=== PATIENT | female | born 1995 | race Caucasian/White ===

== ENCOUNTER 2020-01-12 20:23 | Emergency (ER) | payer MEDICAID ==
[~2020-01-12] VITALS: Ht 165.1 cm; Wt 77.3 kg
--- NOTE | 2020-01-12 21:25 | NUR ---
reports being in a mood reached out to boyfriend he offered her a threesome to coalm her down and walked to a gas station and got a vodka and has been drinking vodka off and on. Than called her sister Ana and she reports aruging with her about this situation and was elliot gto take her home and than sister offered to stacey davidson to the hospital since she is drinking and patient reports wantign to take all her lithium and trazadone entire bottles worth.
[2020-01-12 21:32] LABS: URINE HCG NEGATIVE (NEG)
--- NOTE | 2020-01-12 21:39 | NUR ---
reports using excessive caffeine intake 600 mg pill x 6 and then 8 to speed up heart to
[2020-01-12 21:52] LABS: URINE AMPHETAMINE SCREEN NEGATIVE (Neg); URINE BARBITUATE SCREEN NEGATIVE (Neg); URINE BENZODIAZEPINES SCREEN NEGATIVE (Neg); URINE CANNABINOID SCREEN NEGATIVE (Neg); URINE COCAINE SCREEN NEGATIVE (Neg); URINE METHADONE SCREEN NEGATIVE (Neg); URINE OPIATE SCREEN NEGATIVE (Neg); URINE PHENCYCLIDINE SCREEN NEGATIVE (Neg)
[2020-01-12 22:13] LABS: BASOPHILS % (AUTO) 0.5 % (0-1); EOSINOPHILS # (AUTO) 0.1 X10'3 (0-0.9); EOSINOPHILS % (AUTO) 1.3 % (0-6); HEMATOCRIT 39.4 % (35.0-45.0); LYMPHOCYTES # (AUTO) 1.7 X10'3 (1.1-4.8); LYMPHOCYTES % (AUTO) 24.5 % (21-51); MEAN CORPUSCULAR HEMOGLOBIN 27.2 PG (27.0-31.0); MEAN CORPUSCULAR VOLUME 82.2 FL (78-98); MEAN PLATELET VOLUME 8.4 FL (7.4-10.4); MONOCYTES # (AUTO) 0.6 X10'3 (0-0.9); MONOCYTES % (AUTO) 8.2 % (2-12); NEUTROPHILS # (AUTO) 4.5 X10'3 (1.8-7.7); NEUTROPHILS % (AUTO) 65.5 % (42-75); PLATELET COUNT 300 X10'3 (140-440); RED BLOOD COUNT 4.79 X10'6 (4.20-5.60); RED CELL DISTRIBUTION WIDTH 14.3 % (11.5-14.5); WHITE BLOOD COUNT 6.9 X10'3 (4.5-11.0)
[2020-01-12 22:15] LABS: ALANINE AMINOTRANSFERASE 18 U/L (12-78); ALBUMIN 4.1 G/DL (3.4-5.0); ALKALINE PHOSPHATASE 92 IU/L (46-116); ANION GAP 10 (8-16); ASPARTATE AMINO TRANSFERASE 15 U/L (10-37); BILIRUBIN,TOTAL 0.1 MG/DL (0.1-1.0); BLOOD UREA NITROGEN 10 MG/DL (7-18); CALCIUM 9.2 MG/DL (8.5-10.1); CHLORIDE 107 MMOL/L (99-107); CREATININE 0.83 MG/DL (0.40-0.90); ETHANOL < 0.010 GM/DL (0.0-0.010); GLUCOSE 98 MG/DL (70-104); POTASSIUM 3.6 MMOL/L (3.5-5.1); SODIUM 141 MMOL/L (135-145); TOTAL CARBON DIOXIDE 23.9 MMOL/L (24-32); TOTAL PROTEIN 8.1 G/DL (6.4-8.2); eGFR 85 ML/MIN
[2020-01-12 22:30] LABS: ACETAMINOPHEN < 2.0 UG/ML (10-30)
--- NOTE | 2020-01-12 22:30 | NUR ---
SITTING ON EDGE OF BED LOOKING OUT THE ROOM, NO COMPLAINTS
--- NOTE | 2020-01-12 23:30 | NUR ---
LYING DOWN STARING AT CEILING
--- NOTE | 2020-01-13 00:30 | NUR ---
EYES CLOSED AWAKENS AT ANY STIMULUS OR ROOM CHECK
--- NOTE | 2020-01-13 01:00 | NUR ---
AWAKE IN ROOM LYING IN BED
--- NOTE | 2020-01-13 02:00 | NUR ---
EYES CLOSED NO DISTRESS
--- NOTE | 2020-01-13 03:00 | NUR ---
AWAKE TO RESTROOM
--- NOTE | 2020-01-13 04:00 | NUR ---
AWAKE COMPLAINTS OF INSOMNIA AND THAT SHE GETS THIS WAY IT IS A BIG PROBLEM FOR HER ESPECIALLY OF LATE.
--- NOTE | 2020-01-13 05:55 | NUR ---
UNEVENTFUL NIGHT. ASKING FOR COFFEE ADVSIED NOT AT THIS TIME, SHE REPORTS YOUR HOLDING THIS BECAUSE I HAVE A ADDICTION
[2020-01-13 06:10] VITALS: BP 119/77
--- NOTE | 2020-01-13 07:39 | NUR ---
PT AMBULATED TO BR, TOLERATED WELL. VOIDED X1
--- NOTE | 2020-01-13 09:15 | NUR ---
NIK AT BEDSIDE, ASSESSING PT
--- NOTE | 2020-01-13 16:00 | NUR ---
JODI FROM [facility] HERE TO ESCORT PT TO [place] [facility].
--- NOTE | 2020-01-13 16:11 | NUR ---
SECURITY HERE ALSO TO ESCORT PT
[2020-01-13] MEDS ORDERED: lithium PO (16:17)
[2020-01-13] MEDS ORDERED: TRAZ-251 PO (16:17)
== END 2020-01-13 16:13 | disposition home or self-care (01) ==
LOC: ER 20:25
DX: R45.851 Suicidal ideations (principal); F32.9 Major depressive disorder, single episode, unspecified; Z91.5 Personal history of self-harm
CPT/HCPCS: 36415; 80053; 80305; 80320; 80329; 81025; 85025; 99285

== ENCOUNTER 2020-01-13 15:15 | Inpatient (IN) | payer MEDICAID ==
[~2020-01-13] VITALS: Ht 162.6 cm; Wt 76.5 kg
[2020-01-13] MEDS ORDERED: loperamide 2mg capsule PO PRN (15:55)
[2020-01-13] MEDS ORDERED: acetaminophen 325mg tablet PO PRN ×2 (15:55)
[2020-01-13] MEDS ORDERED: magnesium hydroxide 30ml (MOM) UD suspension PO PRN (15:55)
[2020-01-13] MEDS ORDERED: LORazepam 1 MG tablet PO PRN (15:55)
[2020-01-13] MEDS ORDERED: mag hydrox/Alum hydrox/simeth 30ml oral suspension PO PRN (15:55)
[2020-01-13] MEDS ORDERED: traZODone 50mg tablet PO PRN (15:55)
[2020-01-13] MEDS ORDERED: TRAZ-251 PO (16:17)
[2020-01-13] MEDS ORDERED: lithium PO (16:17)
[2020-01-13 16:41] VITALS: BP 140/93
--- NOTE | 2020-01-13 17:31 | NUR ---
Admit note: PT admitted to [place] for [facility] health today at 1614 on a 5150 for DTS. PT made a plan and intent for suicide to overdose on [place] and Zoloft. Pt unable to develop a plan for safety. Pt has history of depression, eating disorder, anxiety, affective mood disorder, borderline personality disorder. Pt very cooperative with admission process.
[2020-01-13] MEDS: lithium carbonate 150mg capsule PO SCH ×2 (17:48→20:19)
[2020-01-13] MEDS: traZODone 50mg tablet PO PRN (20:18)
[2020-01-13 20:23] VITALS: BP 133/73
--- NOTE | 2020-01-14 02:16 | NUR ---
Nursing progress note Legal hold:5150 Client on involuntary status for DTS Report received from nurse with use of SBAR. Why are they here: PT admitted to [place] for Behavioral health today at 1614 on a 5150 for DTS. PT made a plan and intent for suicide to overdose on [place] and Zoloft. Pt unable to develop a plan for safety. Pt has history of depression, eating disorder, anxiety, affective mood disorder, borderline personality disorder. Pt very cooperative with admission process. Diagnosis/presenting symptoms:Depression Assessment What has happened this shift: Pt was in her room at the start of shift. I introduced myself and asked if I could do an assessment and she was cooperative and pleasant. Talked about getting a hair cut and she stayed in her room most the night S/I, H/I: A/VH: Sleep:See sleep assessment ADL's:independent Group attendance:n/a Were meds taken:yes Any med S/Aparna Mental Status Exam Appearance: WNL Eye contact:good Behavior:pleasant Speech:normal Mood:good Affect:congruent Thought process: Linear Thought Content: appearance Cognition: a/ox4 Insight:good Judgment: fair Interventions PRN's used:none Therapeutic interventions: 1:1 assessment, therapeutic communication, active listening, maintained a safe and therapeutic environment, medication administration/education/monitoring, behavior monitoring and intervention; limit setting, redirection, distraction, positive reinforcement, maintained Q 15 minute safety checks. Restraints/seclusion/emergency medication: N/A Justification of Continued Inpatient Treatment: Pt requires crisis interruption and medication adjustment and monitoring in a safe and therapeutic environment.
[2020-01-14 07:30] LABS: HEMOGLOBIN A1C 5.9 % (4.5-6.2)
[2020-01-14 07:41] LABS: CHOL/HDL RATIO 3.8 (0.00-4.99); CHOLESTEROL 150 MG/DL (0-200); HDL CHOLESTEROL 39 MG/DL (35-60); LDL CHOLESTEROL 97 MG/DL (50-100); TRIGLYCERIDES 94 MG/DL (20-135)
[2020-01-14 08:00] VITALS: BP 119/71
[2020-01-14] MEDS: lithium carbonate 150mg capsule PO SCH ×4 (08:06→20:07)
--- NOTE | 2020-01-14 10:00 | NUR ---
Group Therapy: Process Group This Clinicians goals for this process group were as follows: (1) Ask scaling questions about patients current anxiety, depression, and irritability symptoms as a check-in. (2) Share psychoeducation about self-efficacy, and ego strength. (3) Provide psychoeducation on eMinor triangleVictim, Persecutor, Rescuer dynamic. (4) Share psychoeducation on developing positive ego strengthpositive affirmations, positive self-talk, transitioning from a victim of circumstances to a survivor of circumstances. (5) Process patients thoughts and reflections on this topic within the group milieu. Patient identified experiencing the following levels of anxiety, depression, and anger/irritability while present in the group milieu (0-low; 10-High). Anxiety: 04/02 Depression: 06/30 Anger/irritability: 03/02 Patient presented as properly oriented x4 during the process group. Patient was dressed in nondescript, personal clothing that were appropriate within the milieu. Psychomotor activity was unremarkable. Patient's thought content was clear, and concrete. Patient's thought process was clear, coherent, and linear. This Clinician did not observe Patient responding to any internal stimuli during session. The rate, latency, and tone of Patients speech was within normal limits. Patients speech was clear, and understandable. Patient maintained regular eye contact with this Clinician. Patient presented in calm euthymic mood, with congruent affect during the process group. Patient presented as open, cooperative, verbally engaged, and nonobtrusive within the group milieu. Patient was an active participant during the discussion on ONOFFMIX (?) wyatt. She was able to identify differences in the mindsets of those who present as, Victims, as opposed to those who present as, Survivors. Finally, she was able to state several positive characteristics about herself that she could use as positive affirmations. Azael June MA, SUB PRIOR Addendum: 01/14/20 at 1129 by Azael June Amended: Links added.
--- NOTE | 2020-01-14 17:09 | NUR ---
Nursing progress note Oliva: Legal hold:5150 Client on involuntary status for DTS Report received from Gretchen De La Torre RN with use of SBAR. Why are they here: PT admitted to [facility] for Behavioral health today at 1614 on a 5150 for DTS. PT made a plan and intent for suicide to overdose on [place] and Zoloft. Pt unable to develop a plan for safety. Pt has history of depression, eating disorder, anxiety, affective mood disorder, borderline personality disorder. Pt very cooperative with admission process. Diagnosis/presenting symptoms:Depression Assessment What has happened this shift: Pt was in her room at the start of shift. Pt compliant with med pass after breakfast. During 1:1 interview pt only gave RN yes and no anwsers to questions, pt appears more guarded today. In the afternoon pt seemed more social talking with peer in the day room doing art. Pt calm, compliant and cooperative. Pt seen sitting in room reading book contently. S/I, H/I: Denies A/VH: Denies Sleep: ADL's:independent Group attendance: Yes Were meds taken: Yes Any med S/E: No Mental Status Exam Appearance: WNL Eye contact:good Behavior:pleasant Speech:normal Mood:good Affect:congruent Thought process: Linear Thought Content: appearance Cognition: AOX4 Insight:good Judgment: fair Interventions PRN's used:none Therapeutic interventions: 1:1 assessment, therapeutic communication, active listening, maintained a safe and therapeutic environment, medication administration/education/monitoring, behavior monitoring and intervention; limit setting, redirection, distraction, positive reinforcement, maintained Q 15 minute safety checks. Restraints/seclusion/emergency medication: N/A Justification of Continued Inpatient Treatment: Pt requires crisis interruption and medication adjustment and monitoring in a safe and therapeutic environment.
[2020-01-14] MEDS ORDERED: ibuprofen tablet 400 MG TABLET PO ONE (20:30)
--- NOTE | 2020-01-14 20:30 | NUR ---
New order for motrin obtained as pt. c/o pain to chest/breasts from recent breast augmentation procedure.
[2020-01-14 20:34] VITALS: BP 117/71
[2020-01-14 20:36] VITALS: BP 129/81
[2020-01-14] MEDS: prazosin 1mg capsule PO SCH (20:36)
[2020-01-14] MEDS ORDERED: lithium carbonate 150mg capsule PO SCH (21:00)
[2020-01-14] MEDS: traZODone 50mg tablet PO PRN (21:18)
--- NOTE | 2020-01-15 01:11 | NUR ---
Nursing progress note Oliva: Legal hold:5150 Client on involuntary status for DTS Report received from Danny ARAIZA, with use of SBAR. Why are they here: PT admitted to [facility] for Behavioral health today at 1614 on a 5150 for DTS. PT made a plan and intent for suicide to overdose on [place] and Zoloft. Pt unable to develop a plan for safety. Pt has history of depression, eating disorder, anxiety, affective mood disorder, borderline personality disorder. Pt very cooperative with admission process. Diagnosis/presenting symptoms:Depression Assessment What has happened this shift: Pt was in recreation room at the start of shift watching TV. Pt. requesting to take a shower tonight which she did. Pt compliant with med pass after having snack. New order for motrin for c/o pain to chest/breast area obtained and given. Pt calm, compliant, cooperative and pleasant. S/I, H/I: Denies A/VH: Denies Sleep: ADL's:independent Group attendance: Yes Were meds taken: Yes Any med S/E: No Mental Status Exam Appearance: WNL Eye contact:good Behavior:pleasant Speech:normal Mood:good Affect:congruent Thought process: Linear Thought Content: appearance Cognition: AOX4 Insight:good Judgment: fair Interventions PRN's used:none Therapeutic interventions: 1:1 assessment, therapeutic communication, active listening, maintained a safe and therapeutic environment, medication administration/education/monitoring, behavior monitoring and intervention; limit setting, redirection, distraction, positive reinforcement, maintained Q 15 minute safety checks. Restraints/seclusion/emergency medication: N/A Justification of Continued Inpatient Treatment: Pt requires crisis interruption and medication adjustment and monitoring in a safe and therapeutic environment. Addendum: 01/15/20 at 0135 by Linnette Cordova RN Admit date 01/14/20. Addendum: 01/15/20 at 0254 by Linnette Cordova RN Check sleep report fo hours of sleep. Pt. had prn trazadone 200mg for sleep last night.
[2020-01-15 08:00] VITALS: BP 110/61
[2020-01-15] MEDS: ESCITALOPRAM OXALATE 5 MG TABLET PO SCH (08:24)
[2020-01-15] MEDS: lithium carbonate 150mg capsule PO SCH ×3 (08:25→21:29)
[2020-01-15] MEDS: ibuprofen tablet 400 MG TABLET PO SCH ×2 (08:25→21:28)
--- NOTE | 2020-01-15 17:19 | NUR ---
Nursing progress note Oliva: Legal hold:5150 Client on involuntary status for DTS Report received from Candace ARAIZA, with use of SBAR. Why are they here: PT admitted to [place] [facility] for Behavioral health today at 1614 on a 5150 for DTS. PT made a plan and intent for suicide to overdose on [place] and Zoloft. Pt unable to develop a plan for safety. Pt has history of depression, eating disorder, anxiety, affective mood disorder, borderline personality disorder. Pt very cooperative with admission process. Diagnosis/presenting symptoms:Depression Assessment What has happened this shift: Pt was in the tejeda looking pleasant and restful. Pt compliant with med pass at breakfast time. Pt calm, compliant, cooperative and pleasant. During 1:1 interview patient stated feeling good today, meds are working with no side effects. Pt seen in the community room drawing/coloring with peer. S/I, H/I: Denies A/VH: Denies Sleep: ADL's:independent Group attendance: Yes Were meds taken: Yes Any med S/E: No Mental Status Exam Appearance: WNL Eye contact:good Behavior:pleasant Speech:normal Mood:good Affect:congruent Thought process: Linear Thought Content: appearance Cognition: AOX4 Insight:good Judgment: fair Interventions PRN's used:none Therapeutic interventions: 1:1 assessment, therapeutic communication, active listening, maintained a safe and therapeutic environment, medication administration/education/monitoring, behavior monitoring and intervention; limit setting, redirection, distraction, positive reinforcement, maintained Q 15 minute safety checks. Restraints/seclusion/emergency medication: N/A Justification of Continued Inpatient Treatment: Pt requires crisis interruption and medication adjustment and monitoring in a safe and therapeutic environment.
[2020-01-15 20:41] VITALS: BP 133/79
[2020-01-15] MEDS: prazosin 1mg capsule PO SCH (21:29)
[2020-01-15] MEDS: traZODone 50mg tablet PO PRN (21:30)
--- NOTE | 2020-01-15 22:41 | NUR ---
Nursing progress note Oliva: Legal hold:5150 Client on involuntary status for DTS Report received from Danny ARAIZA, with use of SBAR. Why are they here: PT admitted to [place] for Behavioral health today at 1614 on a 5150 for DTS. PT made a plan and intent for suicide to overdose on [place] and Zoloft. Pt unable to develop a plan for safety. Pt has history of depression, eating disorder, anxiety, affective mood disorder, borderline personality disorder. Pt very cooperative with admission process. Diagnosis/presenting symptoms:Depression Assessment What has happened this shift: Pt was in the group room social with some of her peers. She ate snack in group room watched tv with peers. Pt showered be for med pass then took meds after shower.Pt asked several times if d/c soon. S/I, H/I: Denies A/VH: Denies Sleep: ADL's:independent Group attendance: Yes Were meds taken: Yes Any med S/E: No Mental Status Exam Appearance: WNL Eye contact:good Behavior:pleasant Speech:normal Mood:good Affect:congruent Thought process: Linear Thought Content: appearance Cognition: AOX4 Insight:good Judgment: fair Interventions PRN's used:Trazodone Therapeutic interventions: 1:1 assessment, therapeutic communication, active listening, maintained a safe and therapeutic environment, medication administration/education/monitoring, behavior monitoring and intervention; limit setting, redirection, distraction, positive reinforcement, maintained Q 15 minute safety checks. Restraints/seclusion/emergency medication: N/A Justification of Continued Inpatient Treatment: Pt requires crisis interruption and medication adjustment and monitoring in a safe and therapeutic environment.
[2020-01-16 07:18] VITALS: BP 122/69
[2020-01-16] MEDS: ibuprofen tablet 400 MG TABLET PO SCH (08:21)
[2020-01-16] MEDS: lithium carbonate 150mg capsule PO SCH ×2 (08:21→13:16)
[2020-01-16] MEDS: ESCITALOPRAM OXALATE 5 MG TABLET PO SCH (08:22)
--- NOTE | 2020-01-16 10:57 | NUR ---
pt was in tejeda talking to me messing with shirt and lifted to expose hip bone area. pt seemed to have a red swollen blister/boil. about half dollar sized. pt would not let me examine it closely.
[2020-01-16] MEDS ORDERED: LITH150C8 PO (13:46)
[2020-01-16] MEDS ORDERED: TRAZ-256 PO (13:46)
[2020-01-16] MEDS ORDERED: PRAZ2CAP2 PO (13:46)
[2020-01-16] MEDS ORDERED: ESCI5TAB PO (13:46)
--- NOTE | 2020-01-16 16:04 | NUR ---
Nursing progress note Oliva: Legal hold:5150 Client on involuntary status for DTS Report received from Danny ARAIZA, with use of SBAR. Why are they here: PT admitted to [place] for Behavioral health today at 1614 on a 5150 for DTS. PT made a plan and intent for suicide to overdose on [place] and Zoloft. Pt unable to develop a plan for safety. Pt has history of depression, eating disorder, anxiety, affective mood disorder, borderline personality disorder. Pt very cooperative with admission process. Diagnosis/presenting symptoms:Depression Assessment What has happened this shift: Pt was asleep upon arrival. pt awoke pleasant. Ate breakfast in dining area. Pt was in the group room social with some of her peers. Watched tv in rec room. Ate lunch in dining room. She ate snack in group room watched tv with peers..Pt asked several times when MD would be in, pt anxious about DC. S/I, H/I: Denies A/VH: Denies Sleep: ADL's:independent Group attendance: Yes Were meds taken: Yes Any med S/E: No Mental Status Exam Appearance: WNL Eye contact:good Behavior:pleasant Speech:normal Mood:good Affect:congruent Thought process: Linear Thought Content: appearance Cognition: AOX4 Insight:good Judgment: fair Interventions PRN's used: none Therapeutic interventions: 1:1 assessment, therapeutic communication, active listening, maintained a safe and therapeutic environment, medication administration/education/monitoring, behavior monitoring and intervention; limit setting, redirection, distraction, positive reinforcement, maintained Q 15 minute safety checks. Restraints/seclusion/emergency medication: N/A Justification of Continued Inpatient Treatment: Pt discharging this afternoon to [facility].
[2020-01-17] MEDS ORDERED: PRAZ2CAP2 PO (17:31)
[2020-01-17] MEDS ORDERED: ESCI5TAB12 PO (17:31)
[2020-01-17] MEDS ORDERED: LITH150C8 PO (17:31)
[2020-01-17] MEDS ORDERED: TRAZ-256 PO (17:31)
== END 2020-01-16 16:40 | disposition home or self-care (01) | DRG 751 ==
LOC: UNDOADMIN 15:15 → ADULT MH 15:15
PROVIDERS: ADMIT Psychiatry & Neurology Psychiatry; ATTEND Psychiatry & Neurology Psychiatry
DX: F33.2 Major depressive disorder, recurrent severe without psychotic features (principal); F43.10 Post-traumatic stress disorder, unspecified; R45.851 Suicidal ideations; F10.10 Alcohol abuse, uncomplicated; Z91.5 Personal history of self-harm; Z91.410 Personal history of adult physical and sexual abuse; Z81.8 Family history of other mental and behavioral disorders; Z79.899 Other long term (current) drug therapy
CPT/HCPCS: 36415; 80061; 83036; 87081

== ENCOUNTER 2020-01-17 14:42 | Inpatient (IN) | payer MEDICAID ==
[~2020-01-17] VITALS: Ht 162.6 cm; Wt 77.2 kg
[~2020-01-17 14:42] MED LIST: ESCI5TAB PO; LITH150C8 PO; PRAZ2CAP2 PO; TRAZ-256 PO
--- NOTE | 2020-01-17 15:07 | NUR ---
REPORTED TO POISON CONTROL [facility], THEIR SUGGESTION IS CAUTIONS FOR RESPIRATORY DEPRESSION, HoTN, BRADYCARDIA, AND QTC PROLONGATION. ENSURE SEIZURE PRECAUTIONS REPEAT 2 EKG'S 4HRS APART GIVE MAG 2G FOR QTC > 500 1-2 AMPS MAG > 120 REPEAT TYLENOL LEVELS AT 1730. IF > 150 GIVE ACETYLCYSTEINE TREND BMP AND LITHIUM EVERY 3-4 HRS TIL A PEAK AND DECLINE X2 IF INCREASING START BOWEL IRRIGATION START IV NS AT 1.5 MAINTENANCE TO CLEAR LITHIUM
[2020-01-17 15:22] LABS: BASOPHILS % (AUTO) 0.2 % (0-1); EOSINOPHILS % (AUTO) 0.3 % (0-6); HEMATOCRIT 37.5 % (35.0-45.0); HEMOGLOBIN 12.3 g/dl (12.0-16.0); LYMPHOCYTES # (AUTO) 1.1 X10'3 (1.1-4.8); LYMPHOCYTES % (AUTO) 9.1 % (21-51); MEAN CORPUSCULAR HGB CONC 32.9 g/dL (33.0-36.5); MEAN CORPUSCULAR VOLUME 81.9 FL (78-98); MEAN PLATELET VOLUME 8.5 FL (7.4-10.4); MONOCYTES # (AUTO) 0.7 X10'3 (0-0.9); MONOCYTES % (AUTO) 5.5 % (2-12); NEUTROPHILS # (AUTO) 10.2 X10'3 (1.8-7.7); NEUTROPHILS % (AUTO) 84.9 % (42-75); PLATELET COUNT 301 X10'3 (140-440); RED BLOOD COUNT 4.58 X10'6 (4.20-5.60); RED CELL DISTRIBUTION WIDTH 14.2 % (11.5-14.5); WHITE BLOOD COUNT 12.1 X10'3 (4.5-11.0)
[2020-01-17 15:30] LABS: ALANINE AMINOTRANSFERASE 20 U/L (12-78); ALBUMIN 4.2 G/DL (3.4-5.0); ALBUMIN/GLOBULIN RATIO 1.1 (1.1-1.5); ALKALINE PHOSPHATASE 82 IU/L (46-116); ANION GAP 11 (8-16); ASPARTATE AMINO TRANSFERASE 15 U/L (10-37); BILIRUBIN,TOTAL 0.3 MG/DL (0.1-1.0); BLOOD UREA NITROGEN 12 MG/DL (7-18); BUN/CREATININE RATIO 11.9 (6.6-38.0); CALCIUM 9.2 MG/DL (8.5-10.1); CHLORIDE 106 MMOL/L (99-107); CREATININE 1.01 MG/DL (0.40-0.90); GLUCOSE 153 MG/DL (70-104); POTASSIUM 3.3 MMOL/L (3.5-5.1); SODIUM 139 MMOL/L (135-145); TOTAL CARBON DIOXIDE 21.9 MMOL/L (24-32); TOTAL PROTEIN 8.1 G/DL (6.4-8.2); eGFR 68 ML/MIN
--- NOTE | 2020-01-17 15:33 | NUR ---
pt mother called akshat saucedo phone no [phone].pt mother stated that she came back from [facility] and her another daughter told her that her daughter is taken to hospital for overdose .pt mother want to get update inform that pt is stable at this time and we are observing her .
[2020-01-17 15:39] LABS: ACETAMINOPHEN 62.8 UG/ML (10-30); ETHANOL < 0.010 GM/DL (0.0-0.010)
--- NOTE | 2020-01-17 15:50 | NUR ---
verbal permission taken from the pt to speak to her mom and tell her the poc ,pt has given us verbal permission.
[2020-01-17] MEDS ORDERED: normal saline 1000ML IV soln IVB ONE (16:00)
[2020-01-17] MEDS ORDERED: potassium Cl 20 mEq SR tablet PO PRN ×2 (16:05)
[2020-01-17] MEDS ORDERED: ondansetron/PF 4mg/2ml inj IV PRN (16:05)
[2020-01-17] MEDS ORDERED: morphine 2 MG/ML inj. syringe IV PRN (16:05)
[2020-01-17] MEDS ORDERED: LIDOcaine 2% 10ml TOPICAL JELLY (Urojet) TP ONE (16:05)
[2020-01-17] MEDS ORDERED: potassium CL 10mEq/100ml bag 100 ML IV PRN (16:05)
[2020-01-17] MEDS ORDERED: magnesium hydroxide 30ml (MOM) UD suspension PO PRN (16:05)
[2020-01-17] MEDS ORDERED: morphine 4 MG/ML inj SYRINge IV PRN (16:05)
[2020-01-17] MEDS ORDERED: DEXTROSE 5% IV ONE ×2 (16:10→16:15)
[2020-01-17] MEDS ORDERED: ACETYLCYSTEINE IV ONE ×2 (16:10→16:15)
[2020-01-17] MEDS ORDERED: WATER IV ONE ×2 (16:10→16:15)
[2020-01-17] MEDS ORDERED: acetylcysteine IV (Acetadote) 7,700 MG in dextrose 5%-water 961.5 ML IV ONE (16:15)
[2020-01-17] MEDS: polyethylene glycol 3350 17gm powd pack PO ONE ×2 (16:15→17:10)
[2020-01-17] MEDS: normal saline 1000ml 1,000 ML IV SCH ×2 (16:35→21:04)
[2020-01-17] MEDS: enoxaparin 40mg/0.4ml syringe SUBCUT SCH (16:36)
[2020-01-17 17:03] LABS: ACETAMINOPHEN 58.1 UG/ML (10-30)
[2020-01-17 17:17] LABS: CLARITY,URINE CLEAR (Clear); COLOR,URINE STRAW (Yellow); GLUCOSE, URINE NEGATIVE (Neg); KETONES,URINE TRACE mg/dl (Neg); LEUKOCYTE ESTERASE ,URINE NEGATIVE (Neg); NITRITES, URINE NEGATIVE (Neg); OCCULT BLOOD,URINE NEGATIVE (Neg); PH,URINE 7.5 (4.8-8.0); PROTEIN,URINE NEGATIVE (Neg); UROBILINOGEN,URINE 0.2 E.U/dL (0.2-1.0)
[2020-01-17 17:18] LABS: URINE HCG NEGATIVE (NEG)
[2020-01-17 17:19] LABS: UA COLLECTION TYPE FOLEY CATH
[2020-01-17 17:24] LABS: URINE AMPHETAMINE SCREEN NEGATIVE (Neg); URINE BARBITUATE SCREEN NEGATIVE (Neg); URINE BENZODIAZEPINES SCREEN NEGATIVE (Neg); URINE CANNABINOID SCREEN NEGATIVE (Neg); URINE COCAINE SCREEN NEGATIVE (Neg); URINE METHADONE SCREEN NEGATIVE (Neg); URINE OPIATE SCREEN NEGATIVE (Neg); URINE PHENCYCLIDINE SCREEN NEGATIVE (Neg)
[2020-01-17] MEDS ORDERED: LITH150C8 PO (17:31)
[2020-01-17] MEDS ORDERED: PRAZ2CAP2 PO (17:31)
[2020-01-17] MEDS ORDERED: ESCI5TAB12 PO (17:31)
[2020-01-17] MEDS ORDERED: TRAZ-256 PO (17:31)
--- NOTE | 2020-01-17 17:50 | NUR ---
PT arrived from ED, vitals stable, PT lethargic and speech slightly slurred. PT states vomited in ED whole pills. IV fluids running. Last lab drawn in ED at 1700 (see labs). Report given to RADHA ARAIZA.
[2020-01-17 18:00] VITALS: BP 124/73
--- NOTE | 2020-01-17 18:30 | NUR ---
Patient in room CICU 2009. I have received report from JOSE G Morales and had the opportunity to ask questions and assume patient care.
[2020-01-17 19:00] VITALS: BP 127/82
--- NOTE | 2020-01-17 19:00 | NUR ---
Patient's belongings placed in drawer at bedside, no medication was found, only empty bottle of clonidine, lithium, and seroquel bottles x2. Empty bottles left in personal belongings, physicist cryogenicsJOSE G allen.
[2020-01-17 20:00] VITALS: BP 136/79
[2020-01-17] MEDS: potassium CL 10mEq/100ml bag 100 ML IV PRN ×2 (20:17→23:03)
[2020-01-17 21:00] VITALS: BP 121/73
[2020-01-17 22:00] VITALS: BP 130/66
[2020-01-17 23:00] VITALS: BP 127/76
[2020-01-18] VITALS (24 sets, daily range): BP systolic 99–137; BP diastolic 54–83
[2020-01-18] MEDS: potassium CL 10mEq/100ml bag 100 ML IV PRN ×2 (01:01→03:18)
[2020-01-18 01:59] LABS: BASOPHILS % (AUTO) 0.3 % (0-1); EOSINOPHILS % (AUTO) 0.3 % (0-6); HEMATOCRIT 36.3 % (35.0-45.0); HEMOGLOBIN 12.1 g/dl (12.0-16.0); LYMPHOCYTES # (AUTO) 1.6 X10'3 (1.1-4.8); LYMPHOCYTES % (AUTO) 17.3 % (21-51); MEAN CORPUSCULAR HEMOGLOBIN 27.2 PG (27.0-31.0); MEAN CORPUSCULAR HGB CONC 33.4 g/dL (33.0-36.5); MEAN CORPUSCULAR VOLUME 81.5 FL (78-98); MEAN PLATELET VOLUME 8.5 FL (7.4-10.4); MONOCYTES # (AUTO) 0.7 X10'3 (0-0.9); MONOCYTES % (AUTO) 7.9 % (2-12); NEUTROPHILS # (AUTO) 6.7 X10'3 (1.8-7.7); NEUTROPHILS % (AUTO) 74.2 % (42-75); PLATELET COUNT 278 X10'3 (140-440); RED BLOOD COUNT 4.46 X10'6 (4.20-5.60); RED CELL DISTRIBUTION WIDTH 14.5 % (11.5-14.5); WHITE BLOOD COUNT 9.1 X10'3 (4.5-11.0)
[2020-01-18] MEDS: normal saline 1000ml 1,000 ML IV SCH ×2 (03:18→09:20)
[2020-01-18 05:40] LABS: ACETAMINOPHEN 2.8 UG/ML (10-30); ALANINE AMINOTRANSFERASE 18 U/L (12-78); ALBUMIN 3.2 G/DL (3.4-5.0); ALBUMIN/GLOBULIN RATIO 0.9 (1.1-1.5); ALKALINE PHOSPHATASE 65 IU/L (46-116); ANION GAP 12 (8-16); ASPARTATE AMINO TRANSFERASE 15 U/L (10-37); BILIRUBIN,TOTAL 0.2 MG/DL (0.1-1.0); BLOOD UREA NITROGEN 3 MG/DL (7-18); BUN/CREATININE RATIO 3.8 (6.6-38.0); CALCIUM 8.8 MG/DL (8.5-10.1); CHLORIDE 111 MMOL/L (99-107); CREATININE 0.78 MG/DL (0.40-0.90); GLUCOSE 109 MG/DL (70-104); PHOSPHORUS 2.6 MG/DL (2.3-4.5); POTASSIUM 3.5 MMOL/L (3.5-5.1); SODIUM 143 MMOL/L (135-145); TOTAL CARBON DIOXIDE 19.6 MMOL/L (24-32); TOTAL PROTEIN 6.7 G/DL (6.4-8.2); eGFR > 90 ML/MIN
--- NOTE | 2020-01-18 06:26 | NUR ---
Problems reprioritized. Patient report given, questions answered & plan of care reviewed with JOSE G Pierson.
[2020-01-18] MEDS: enoxaparin 40mg/0.4ml syringe SUBCUT SCH (09:19)
--- NOTE | 2020-01-18 14:34 | NUR ---
Poison control called. Requesting new lithium levels and if pt was going to be transferred to pysch unit.
--- NOTE | 2020-01-18 18:30 | NUR ---
Patient in room CICU 2009. I have received report from JOSE G Pierson and had the opportunity to ask questions and assume patient care.
[2020-01-19] VITALS (23 sets, daily range): BP systolic 95–133; BP diastolic 50–83
[2020-01-19 04:28] LABS: BASOPHILS % (AUTO) 0.5 % (0-1); EOSINOPHILS # (AUTO) 0.3 X10'3 (0-0.9); EOSINOPHILS % (AUTO) 4.6 % (0-6); HEMATOCRIT 34.7 % (35.0-45.0); HEMOGLOBIN 11.3 g/dl (12.0-16.0); LYMPHOCYTES # (AUTO) 1.7 X10'3 (1.1-4.8); LYMPHOCYTES % (AUTO) 28.7 % (21-51); MEAN CORPUSCULAR HEMOGLOBIN 26.7 PG (27.0-31.0); MEAN CORPUSCULAR HGB CONC 32.5 g/dL (33.0-36.5); MONOCYTES # (AUTO) 0.4 X10'3 (0-0.9); MONOCYTES % (AUTO) 7.3 % (2-12); NEUTROPHILS # (AUTO) 3.6 X10'3 (1.8-7.7); NEUTROPHILS % (AUTO) 58.9 % (42-75); PLATELET COUNT 265 X10'3 (140-440); RED BLOOD COUNT 4.23 X10'6 (4.20-5.60); RED CELL DISTRIBUTION WIDTH 14.2 % (11.5-14.5); WHITE BLOOD COUNT 6.1 X10'3 (4.5-11.0)
[2020-01-19 04:40] LABS: ALANINE AMINOTRANSFERASE 18 U/L (12-78); ALBUMIN 3.2 G/DL (3.4-5.0); ALKALINE PHOSPHATASE 67 IU/L (46-116); ANION GAP 8 (8-16); ASPARTATE AMINO TRANSFERASE 10 U/L (10-37); BILIRUBIN,TOTAL 0.2 MG/DL (0.1-1.0); BLOOD UREA NITROGEN 7 MG/DL (7-18); BUN/CREATININE RATIO 8.1 (6.6-38.0); CALCIUM 9.3 MG/DL (8.5-10.1); CHLORIDE 112 MMOL/L (99-107); CREATININE 0.86 MG/DL (0.40-0.90); GLUCOSE 95 MG/DL (70-104); PHOSPHORUS 3.6 MG/DL (2.3-4.5); POTASSIUM 3.8 MMOL/L (3.5-5.1); SODIUM 144 MMOL/L (135-145); TOTAL CARBON DIOXIDE 24.1 MMOL/L (24-32); TOTAL PROTEIN 6.5 G/DL (6.4-8.2); eGFR 82 ML/MIN
--- NOTE | 2020-01-19 06:11 | NUR ---
Problems reprioritized. Patient report given, questions answered & plan of care reviewed with JOSE G Pierson .
[2020-01-19] MEDS: enoxaparin 40mg/0.4ml syringe SUBCUT SCH (09:17)
--- NOTE | 2020-01-19 10:12 | NUR ---
Pt packet sent to [facility]. Spoke with [facility] office and the packet was received. Pt is on evaluators list. Spoke with nursing property supervisor. Pt is not to be moved until after evaluation by [facility].
--- NOTE | 2020-01-19 18:30 | NUR ---
Patient in room CICU 2009. I have received report from JOSE G Pierson and had the opportunity to ask questions and assume patient care.
--- NOTE | 2020-01-19 23:10 | NUR ---
Patient received placement at [facility], patient was swabbed for covid and tested negative, Results have been faxed over to [facility], awaiting more information on the transfer of the patient. It is probable that the patient will be transferred tonight or tomorrow morning.
[2020-01-20] VITALS (11 sets, daily range): BP systolic 112–137; BP diastolic 63–91
[2020-01-20 06:01] LABS: BASOPHILS % (AUTO) 0.4 % (0-1); EOSINOPHILS # (AUTO) 0.2 X10'3 (0-0.9); EOSINOPHILS % (AUTO) 3.2 % (0-6); HEMATOCRIT 39.1 % (35.0-45.0); HEMOGLOBIN 12.7 g/dl (12.0-16.0); LYMPHOCYTES # (AUTO) 2.2 X10'3 (1.1-4.8); LYMPHOCYTES % (AUTO) 31.8 % (21-51); MEAN CORPUSCULAR HEMOGLOBIN 26.9 PG (27.0-31.0); MEAN CORPUSCULAR HGB CONC 32.5 g/dL (33.0-36.5); MEAN CORPUSCULAR VOLUME 82.7 FL (78-98); MEAN PLATELET VOLUME 8.6 FL (7.4-10.4); MONOCYTES # (AUTO) 0.5 X10'3 (0-0.9); MONOCYTES % (AUTO) 6.7 % (2-12); NEUTROPHILS % (AUTO) 57.9 % (42-75); PLATELET COUNT 278 X10'3 (140-440); RED BLOOD COUNT 4.72 X10'6 (4.20-5.60); RED CELL DISTRIBUTION WIDTH 14.5 % (11.5-14.5); WHITE BLOOD COUNT 6.9 X10'3 (4.5-11.0)
[2020-01-20 06:10] LABS: ALANINE AMINOTRANSFERASE 18 U/L (12-78); ALBUMIN 3.7 G/DL (3.4-5.0); ALKALINE PHOSPHATASE 78 IU/L (46-116); ANION GAP 12 (8-16); ASPARTATE AMINO TRANSFERASE 11 U/L (10-37); BILIRUBIN,TOTAL 0.3 MG/DL (0.1-1.0); BLOOD UREA NITROGEN 7 MG/DL (7-18); CALCIUM 9.3 MG/DL (8.5-10.1); CHLORIDE 109 MMOL/L (99-107); CREATININE 0.87 MG/DL (0.40-0.90); GLUCOSE 83 MG/DL (70-104); MAGNESIUM 2.1 MG/DL (1.5-2.4); PHOSPHORUS 4.1 MG/DL (2.3-4.5); POTASSIUM 3.5 MMOL/L (3.5-5.1); SODIUM 145 MMOL/L (135-145); TOTAL CARBON DIOXIDE 24.4 MMOL/L (24-32); TOTAL PROTEIN 7.4 G/DL (6.4-8.2); eGFR 81 ML/MIN
--- NOTE | 2020-01-20 06:18 | NUR ---
Problems reprioritized. Patient report given, questions answered & plan of care reviewed with JOSE G Cortez.
[2020-01-20] MEDS: enoxaparin 40mg/0.4ml syringe SUBCUT SCH (08:00)
--- NOTE | 2020-01-20 10:59 | NUR ---
Patient discharged to [facility] with all belongings. Home medications with the [facility] trash truck driver. Security provided escort. Given her discharge paperwork and "Suicide How to Help Yourself" info.
== END 2020-01-20 11:00 | disposition home or self-care (01) | DRG 817 ==
LOC: ER 14:42 → ED HOLD 16:03 → CICU 2S 17:59
PROVIDERS: ADMIT Internal Medicine Critical Care Medicine; ATTEND Internal Medicine Critical Care Medicine
DX: T39.1X2A Poisoning by 4-Aminophenol derivatives, intentional self-harm, initial encounter (principal); Z20.828 Contact with and (suspected) exposure to other viral communicable diseases; Y92.89 Other specified places as the place of occurrence of the external cause; T50.992A Poisoning by other drugs, medicaments and biological substances, intentional self-harm, initial encounter; Z81.8 Family history of other mental and behavioral disorders; F60.3 Borderline personality disorder; F32.9 Major depressive disorder, single episode, unspecified; T43.592A Poisoning by other antipsychotics and neuroleptics, intentional self-harm, initial encounter
CPT/HCPCS: 36415; 80053; 80178; 80305; 80320; 80329; 81003; 81025; 82948; 83735; 84100; 84443; 85025; 87635; 93005; 96365; 97116; 97161; 97530; 99291; G0378; J0132; J1650; J3480; J7030; J7060; J7070